=== PATIENT | male | born 1960 | race Caucasian/White ===

== ENCOUNTER 2024-06-06 13:11 | Observation (INO) | payer OTHER ==
[~2024-06-06 13:11] MED LIST: Iopamidol 370 76% 100 ML VIAL ONE
[2024-06-06 14:22] LABS: #Basophils 0.07 10x3/uL (0.0-0.2); %Basophils 0.8 % (0.0-1.0); %Eosinophils 2.9 % (0.0-10.0); %Monocytes 9.3 % (0.0-10.0); %Neutrophils 65.7 % (42.0-75.0); Hematocrit 41.3 % (42.0-52.0); Hemoglobin 13.9 g/dL (14.0-18.0); Mean Corpuscular HGB CONC 33.7 g/dL (32.0-36.0); Mean Corpuscular Hemoglobin 29.7 pg (27.0-31.0); Mean Corpuscular Volume 88.2 fL (78.0-98.0); Mean Platelet Volume 10.9 fL (7.4-10.4); Platelet Count 261 10x3/uL (130-400); Red Blood Cell (RBC) Count 4.68 mill/uL (4.70-6.10)
[2024-06-06 15:20] LABS: Bacteria/HPF None Seen HPF (None Seen); Bilirubin Negative (Negative); Blood, Urine Negative (Negative); CAUTI Indications for Culture Dysuria,urgency,freq; Clarity Clear (Clear); Glucose, Urine (Dipstick) Normal (Negative); Ketone, Urine Trace mg/dL (Negative); Leukocyte Negative Leu/uL (Negative); Nitrite Negative (Negative); Protein, Urine (Dipstick) 200 mg/dL (Neg-Trace); RBC/HPF 0-3 HPF (0-3); Specific Gravity, Urine 1.031 (1.002-1.036); Squamous Epithelial None Seen HPF (0-3); WBC/HPF 0-3 HPF (0-3)
[2024-06-06 15:34] LABS: Urine Culture Reflex No No
[2024-06-06 15:39] LABS: Chloride 108 mmol/L (98-107); Potassium 4.5 mmol/L (3.5-5.1); Sodium 140 mmol/L (136-145)
[2024-06-06 15:40] LABS: Albumin 3.5 g/dL (3.4-4.8); Glucose 155 mg/dL (80-115)
[2024-06-06 15:41] LABS: Globulin 2.8 g/dL (2.4-3.5); Protein, Total 6.3 g/dL (5.8-8.1)
[2024-06-06 15:42] LABS: Anion Gap 13 mmol/L (10-20); Carbon Dioxide 24 mmol/L (23-31)
[2024-06-06 15:43] LABS: Bilirubin, Total 0.5 mg/dL (0.2-1.2)
[2024-06-06 15:44] LABS: Alkaline Phosphatase 83 U/L (40-110); BUN (Urea Nitrogen) 14 mg/dL (8.4-25.7); Calc. Creatinine Clearance 0 mL/min (70-130); Estimated GFR 100
[2024-06-06 15:46] LABS: ALT (SGPT) 19 U/L (8-55); AST (SGOT) 14 U/L (5-34); Magnesium 1.8 mg/dL (1.6-2.6)
[2024-06-06 16:05] LABS: Troponin I Less than 0.010 ng/mL (< 0.028)
[2024-06-06] MEDS ORDERED: Ondansetron PF 4 MG/2 ML Vial IVP PRN (17:23)
[2024-06-06] MEDS ORDERED: Acetaminophen 325 MG TAB PO PRN (17:23)
[2024-06-06] MEDS ORDERED: Acetaminophen 650 MG Suppository PR PRN (17:23)
[2024-06-06] MEDS ORDERED: Senokot S 8.6-50 MG TAB PO PRN (17:23)
[2024-06-06] MEDS ORDERED: Calcium Carbonate 500 MG ChewTAB PO PRN (17:23)
[2024-06-06] MEDS ORDERED: Ondansetron ODT 4 MG TAB PO PRN (17:23)
[2024-06-06] MEDS ORDERED: Labetalol HCl 100 MG/20 ML VIAL SLOW IVP PRN (17:29)
[2024-06-06] MEDS ORDERED: Aspirin Chewable 81 MG TAB ONE (17:38)
[2024-06-06 17:52] LABS: PTT 26.7 sec (22.9-36.1); Prothrombin Time 13.4 sec (12.0-14.7)
[2024-06-06] MEDS ORDERED: Dextrose 50% Abboject 50 ML SYRINGE SLOW IVP PRN (18:27)
[2024-06-06] MEDS ORDERED: Glucagon 1 MG/ML KIT IM PRN (18:27)
[2024-06-06] MEDS ORDERED: Dextrose 5% in Water 1,000 ML IV PRN (18:27)
[2024-06-06 18:34] VITALS: BMI 26.2
[2024-06-06] MEDS: Lactated Ringer's 1,000 ML IV SCH (20:38)
[2024-06-06] MEDS: Atorvastatin Calcium 40 MG TAB PO SCH (20:39)
[2024-06-06] MEDS: Clopidogrel Bisulfate 75 MG TAB PO SCH (22:26)
[2024-06-07 04:37] LABS: #Basophils 0.08 10x3/uL (0.0-0.2); %Eosinophils 3.9 % (0.0-10.0); %Lymphocytes 29.8 % (21.0-51.0); %Monocytes 8.9 % (0.0-10.0); %Neutrophils 56.3 % (42.0-75.0); Hematocrit 38.4 % (42.0-52.0); Hemoglobin 12.4 g/dL (14.0-18.0); Mean Corpuscular HGB CONC 32.3 g/dL (32.0-36.0); Mean Corpuscular Hemoglobin 29.7 pg (27.0-31.0); Mean Corpuscular Volume 91.9 fL (78.0-98.0); Mean Platelet Volume 10.4 fL (7.4-10.4); Platelet Count 240 10x3/uL (130-400); RBC Distribution Width 12.9 % (11.5-14.5); Red Blood Cell (RBC) Count 4.18 mill/uL (4.70-6.10)
[2024-06-07 04:40] LABS: Hemoglobin A1c 6.2 % (4.0-6.0)
[2024-06-07 04:52] LABS: Anion Gap 11 mmol/L (10-20); BUN (Urea Nitrogen) 13 mg/dL (8.4-25.7); Calc. Creatinine Clearance 136 mL/min (70-130); Calcium 8.4 mg/dL (7.8-10.44); Carbon Dioxide 23 mmol/L (23-31); Cardiac Risk 2.8 (Less than 4.5); Chloride 108 mmol/L (98-107); Cholesterol 89 mg/dl (< 200 Desired); Estimated GFR 104; Glucose 156 mg/dL (80-115); HDL Cholesterol 32 mg/dL (>60 Neg Risk); LDL Cholesterol, Calculated 39 mg/dL; Potassium 3.9 mmol/L (3.5-5.1); Sodium 138 mmol/L (136-145); Triglycerides 90 mg/dL (Less than 150)
[2024-06-07] MEDS ORDERED: Aspirin 81 mg Enteric Coated Tablet PO SCH (09:00)
[2024-06-07] MEDS ORDERED: Clopidogrel Bisulfate 75 MG TAB PO SCH (09:00)
[2024-06-07] MEDS: Aspirin 325 mg Enteric Coated Tablet PO SCH (09:08)
[2024-06-07] MEDS: Insulin Lispro 100 UNIT/ML 10 ML VIAL SC PRN (12:09)
[2024-06-08] MEDS: Cyclobenzaprine 10 MG TAB PO SCH (03:53)
[2024-06-08 04:03] LABS: #Basophils 0.04 10x3/uL (0.0-0.2); %Basophils 0.5 % (0.0-1.0); %Eosinophils 3.2 % (0.0-10.0); %Lymphocytes 31.1 % (21.0-51.0); %Monocytes 8.3 % (0.0-10.0); %Neutrophils 56.8 % (42.0-75.0); Hematocrit 38.7 % (42.0-52.0); Mean Corpuscular HGB CONC 33.6 g/dL (32.0-36.0); Mean Corpuscular Hemoglobin 29.5 pg (27.0-31.0); Mean Corpuscular Volume 87.8 fL (78.0-98.0); Mean Platelet Volume 10.5 fL (7.4-10.4); Platelet Count 269 10x3/uL (130-400); RBC Distribution Width 12.7 % (11.5-14.5); Red Blood Cell (RBC) Count 4.41 mill/uL (4.70-6.10)
[2024-06-08 04:18] LABS: Anion Gap 13 mmol/L (10-20); BUN (Urea Nitrogen) 11 mg/dL (8.4-25.7); Calc. Creatinine Clearance 127 mL/min (70-130); Calcium 8.6 mg/dL (7.8-10.44); Carbon Dioxide 24 mmol/L (23-31); Chloride 107 mmol/L (98-107); Estimated GFR 101; Glucose 199 mg/dL (80-115); Potassium 4.2 mmol/L (3.5-5.1); Sodium 140 mmol/L (136-145)
[2024-06-08 11:58] VITALS: BP 136/85; TEMP 98.3
== END 2024-06-08 17:01 | disposition home or self-care (01) ==
LOC: ERS 13:11 → 2SE 17:22
PROVIDERS: ADMIT Family Medicine; ATTEND Internal Medicine
PROC: B246ZZZ Ultrasonography of Right and Left Heart (ICD-10-PCS; principal; 2024-06-06)
DX: R53.1 Weakness (principal); R78.5 Finding of other psychotropic drug in blood; E78.5 Hyperlipidemia, unspecified; I69.354 Hemiplegia and hemiparesis following cerebral infarction affecting left non-dominant side; E11.49 Type 2 diabetes mellitus with other diabetic neurological complication; Z79.82 Long term (current) use of aspirin; Z79.899 Other long term (current) drug therapy; Z79.02 Long term (current) use of antithrombotics/antiplatelets; Z79.84 Long term (current) use of oral hypoglycemic drugs; E66.9 Obesity, unspecified
CPT/HCPCS: 70450; 70496; 70498; 70551; 71045; 74230; 80048 ×2; 80061; 81001; 82607; 82962 ×3; 83036; 83735; 83880; 84484; 85025 ×2; 85610; 85730; 93005; 93306; 97110; 97116 ×2; 97530 ×2; 99285; G0378 ×4; J7120 ×2; Q9967; 36415; 36416; 80053; 84443

== ENCOUNTER 2024-06-15 18:53 | Emergency (ER) | payer OTHER | END 2024-06-15 19:36 | disposition left against medical advice (07) | LOC: ERS 18:53 | DX: Z53.21 Procedure and treatment not carried out due to patient leaving prior to being seen by health care provider (principal) ==

== ENCOUNTER 2025-02-12 17:14 | Emergency (ER) | payer OTHER ==
[2025-02-12] MEDS ORDERED: Acetaminophen 500 MG TAB ONE (19:13)
[2025-02-12 19:16] LABS: #Basophils 0.07 10x3/uL (0.0-0.2); #Eosinophils 0.19 10x3/uL (0.0-0.7); #Monocytes 0.82 10x3/uL (0.11-0.59); #Neutrophils 8.77 10x3/uL (1.40-6.50); %Basophils 0.6 % (0.0-1.0); %Eosinophils 1.6 % (0.0-10.0); %Lymphocytes 17.1 % (21.0-51.0); %Monocytes 6.9 % (0.0-10.0); %Neutrophils 73.5 % (42.0-75.0); Hematocrit 43.1 % (42.0-52.0); Hemoglobin 13.8 g/dL (14.0-18.0); Mean Corpuscular Hemoglobin 29.1 pg (27.0-31.0); Mean Corpuscular Volume 90.7 fL (78.0-98.0); Platelet Count 274 10x3/uL (130-400); Red Blood Cell (RBC) Count 4.75 mill/uL (4.70-6.10); White Blood Cell (WBC) Count 11.92 10x3/uL (4.8-10.8)
[2025-02-12 19:31] LABS: ALT (SGPT) 11 U/L (Less than 45); AST (SGOT) 11 U/L (11-34); Albumin 3.9 g/dL (3.1-4.5); Alkaline Phosphatase 75 U/L (40-110); Anion Gap 13 mmol/L (10-20); BUN (Urea Nitrogen) 23 mg/dL (8.4-25.7); Bilirubin, Total 0.4 mg/dL (0.3-1.2); Calc. Creatinine Clearance 0 mL/min (70-130); Calcium 8.9 mg/dL (7.8-10.44); Carbon Dioxide 25 mmol/L (23-31); Chloride 106 mmol/L (98-107); Globulin 2.6 g/dL (2.4-3.5); Glucose 162 mg/dL (80-115); Potassium 4.6 mmol/L (3.5-5.1); Sodium 139 mmol/L (136-145)
[2025-02-12 19:38] LABS: INR-International Normal Ratio 1.0; Prothrombin Time 13.2 sec (12.0-14.7)
[2025-02-12 19:42] LABS: PTT 26.7 sec (22.9-36.1)
== END 2025-02-12 19:59 | disposition home or self-care (01) ==
LOC: ERS 17:14
DX: S60.222A Contusion of left hand, initial encounter (principal); S00.81XA Abrasion of other part of head, initial encounter; S60.511A Abrasion of right hand, initial encounter; S80.212A Abrasion, left knee, initial encounter; S80.211A Abrasion, right knee, initial encounter; E11.9 Type 2 diabetes mellitus without complications; W22.8XXA Striking against or struck by other objects, initial encounter; Z86.73 Personal history of transient ischemic attack (TIA), and cerebral infarction without residual deficits
CPT/HCPCS: 36415; 70450; 70486; 72125; 80053; 85025; 85610; 85730